=== PATIENT | female | born 1965 | race Caucasian/White ===

== ENCOUNTER 2017-01-04 16:31 | Emergency (ER) | payer OTHER ==
[~2017-01-04] VITALS: Ht 165.1 cm; Wt 70.3 kg
[2017-01-04] MEDS ORDERED: AMMONIA NASAL INHALATION 1 EA PACK NAS ONE (16:42)
[2017-01-04 17:00] LABS: BASOPHILS % (AUTO) 0.6 % (0.0-2.0); DIFF TOTAL % 100 %; EOSINOPHILS % (AUTO) 0.2 % (0.0-6.0); HEMATOCRIT 40 % (33-45); HEMOGLOBIN 13.4 g/dL (11.5-14.8); LYMPHOCYTES # (AUTO) 0.5 /CMM (0.8-4.8); MEAN CORPUSCULAR HEMOGLOBIN 35 PG (26.0-33.0); MEAN CORPUSCULAR HGB CONC 34 g/dl (31.0-36.0); MEAN CORPUSCULAR VOLUME 103 fL (82-100); MONOCYTES # (AUTO) 0.7 /CMM (0.1-1.30); MONOCYTES % (AUTO) 8.7 % (2.0-12.0); NEUTROPHILS # (AUTO) 6.8 /CMM (1.8-8.9); NEUTROPHILS % (AUTO) 84.5 % (43.0-81.0); PLATELET COUNT (AUTO) 151 /CMM (150-450); RED BLOOD CELL COUNT(AUTO) 3.86 MIL/uL (4.0-5.2)
[2017-01-04] MEDS ORDERED: OLANZAPINE 10 MG VIAL IM ONE (17:00)
[2017-01-04] MEDS ORDERED: IV SET PRIMARY 1 EA INFUS.SET MC ONE (17:10)
[2017-01-04] MEDS ORDERED: IV SET PRIMARY PUMP SET 1 EA INFUS.SET MC ONE ×4 (17:10→18:00)
[2017-01-04] MEDS ORDERED: IV NS 0.9% 1,000 ML ONE (17:10)
[2017-01-04] MEDS ORDERED: PROPOFOL 100 ML IV ONE ×2 (17:10→17:13)
[2017-01-04 17:14] LABS: ANION GAP 19 (5-14); CALCIUM, SERUM 8.4 mg/dL (8.5-10.1); CARBON DIOXIDE 24 mmol/L (21-32); CHLORIDE 95 mmol/L (98-107); CREATININE 0.4 mg/dL (0.6-1.3); GFR 168 mL/min (>60); GLUCOSE 132 mg/dL (74-106); SODIUM SERUM 134 mmol/L (136-145); UREA NITROGEN, BLOOD 9 mg/dL (7-18)
[2017-01-04 17:21] LABS: TROPONIN I < 0.017 ng/mL (0.00-0.056)
[2017-01-04] MEDS ORDERED: MANNITOL 0 ML IV ONE (17:29)
[2017-01-04 17:30] LABS: INR 1.12 (0.87-1.13); PROTHROMBIN TIME 11.8 SECS (9.5-12.7)
[2017-01-04] MEDS ORDERED: MANNITOL 12.5 GM/50 ML VIAL IV ONE ×4 (17:30→18:00)
[2017-01-04] MEDS ORDERED: LEVETIRACETAM (500MG) 1,000 MG in IV NS 0.9% 100 ML IV SCH (17:30)
[2017-01-04] MEDS ORDERED: MANNITOL 20% IV ONE (17:34)
[2017-01-04 17:36] VITALS: BP 157/85
[2017-01-04] MEDS ORDERED: hydrALAZINE HCL IV 20 MG VIAL ONE (17:46)
[2017-01-04] MEDS ORDERED: hydrALAZINE HCL IV 20 MG VIAL IV ONE (18:00)
[2017-01-04] MEDS ORDERED: MANNITOL 25 GM in IV D5W 50 ML IV PRN (18:00)
[2017-01-04 18:03] VITALS: BP 147/90
[2017-01-04] MEDS ORDERED: ETOMIDATE 2 MG/ML VIAL IV ONE (19:00)
[2017-01-04] MEDS ORDERED: SUCCINYLCHOLINE CHLORIDE 20 MG/ML VIAL IV ONE (19:00)
== END 2017-01-04 19:05 | disposition short-term general hospital (02) ==
LOC: ER 16:33
DX: S06.5X0A Traumatic subdural hemorrhage without loss of consciousness, initial encounter (principal); F17.200 Nicotine dependence, unspecified, uncomplicated; W19.XXXA Unspecified fall, initial encounter; Y93.89 Activity, other specified; Y92.89 Other specified places as the place of occurrence of the external cause; Y99.8 Other external cause status
CPT/HCPCS: 36415; 70450-TC; 71010-TC; 80048-TC; 84484-TC; 85025-TC; 85730-TC; 86850-TC; A4606; G0480; J0330; J0360; J1953; J2150; J3490; J7030; J7060; Z7610